=== PATIENT | male | born 1970 | race Caucasian/White ===

== ENCOUNTER 2016-08-29 09:53 | Observation (INO) | payer BC ==
--- NOTE | ~2016-08-29 | HP ---
History And Physical [place] [id number] [facility] [place]. [address] NAME: REMA BAINS : 72 STATUS : ADM Samantha PAT#: [id number] AGE: 46 ADM/REG DATE : 08/29/16 MR#: [id number] REPORT SERV DATE: 08/29/16 DICTATED BY: LAURA CHOI DATE: 08/29/16 REPORT STATUS : Draft TRANSCRIBED BY: STU DATE: 08/29/16 DATE OF ADMISSION: 08/29/2016 CHIEF COMPLAINT: Chest pressure with atypical features. HISTORY OF PRESENT ILLNESS: A very pleasant 46-year-old white gentleman with no known history of CAD, who states that this morning around 0400 hours, he experienced some left- sided chest discomfort, described as a pressure with a tingling into his left arm and now residual numbness in three fingers of his left hand. He states that he was using a sledgehammer this weekend to drive a fencepost into the ground on his property, he experienced no discomfort during that activity, and the chest pain is not reproducible on exam and the chest pain does not radiate elsewhere. He indicates a small area around his left chest that seems to be worse with a deep inspiration. He reports associated shortness of breath, dizziness, and belching. Denies nausea or diaphoresis. At its most intense, he rates the chest discomfort a 7/10. At time of interview in the [facility], he rates it a 2/10. The discomfort has been persistent. He did try four antacids at home prior to arrival with no relief or improvement in his symptoms. He describes the discomfort as a pressure. He denies any personal history of myocardial infarction, stroke, DVT, or pulmonary embolus. The patient denies any recent fever or chills. No palpitations. No syncopal episodes. Denies PND or orthopnea. PAST MEDICAL HISTORY: Denies hypertension, dyslipidemia, or diabetes. PAST SURGICAL HISTORY: None. SOCIAL HISTORY: He is , with two children. 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 He walks three to four times weekly approximately five miles. He also ran one mile on without incident during his routine walk. Denies tobacco or illicits. Consumes some degree of beer, as much as a 12 pack on the weekends. FAMILY HISTORY: No embolic events reported in the first-degree relatives. REVIEW OF SYSTEMS: A 14-point review of systems performed, significant for HPI including consumes one pot of coffee most days. Otherwise, complete review of systems obtained and negative. ALLERGIES: NO KNOWN DRUG ALLERGIES. HOME MEDICATIONS: Ibuprofen p.r.n. PHYSICAL EXAMINATION: VITAL SIGNS: Blood pressure 143/92, pulse 60, respirations 16, temperature 97.7, O2 saturation 98% on room air, height 5 feet 11 inches, weight 207 pounds stated. GENERAL: Cooperative, in no apparent distress. HEENT: Pupils 2 mm. Sclera nonicteric. Nares patent. Moist mucous membranes. No History And Physical [address] [address] NAME: REMA BAINS : 72 STATUS : ADM Samantha PAT#: [id number] AGE: 46 ADM/REG DATE : 08/29/16 MR#: [id number] REPORT SERV DATE: 08/29/16 DICTATED BY: LAURA CHOI DATE: 08/29/16 REPORT STATUS : Draft TRANSCRIBED BY: STU DATE: 08/29/16 xanthelasma. NECK: Trachea midline. No thyromegaly. No JVD. No bruits. LYMPH: No cervical lymphadenopathy. No supraclavicular lymphadenopathy. RESPIRATORY: Unlabored respirations. Breath sounds clear bilaterally to posterior auscultation. No wheezes or rhonchi. CARDIOVASCULAR: Regular rate. No murmur, rub, or gallop appreciated. Extremities without edema. Pulses 2+ bilaterally. ABDOMEN: Soft, nontender, nondistended. Normal bowel sounds auscultated throughout. No organomegaly. SKIN: Warm, dry extremities. No pallor or cyanosis. PSYCHIATRIC: Appropriate affect. Alert, oriented x3. LABORATORY DATA: Troponin less than 0.02 twice, third pending. Potassium 4.2, BUN 15, creatinine 0.85, glucose 115, magnesium 2.2. BNP 4.0. WBC 6.9, hemoglobin 15.0, hematocrit 42.8, platelet count 217,000. D-dimer less than 0.27. EKG, sinus rhythm with early repolarization and nonspecific ST waves. ASSESSMENT AND PLAN: 1. Chest pain with pleuritic component. Observe in CPOU overnight to rule out myocardial infarction per protocol. If three troponins negative, n.p.o. for in the morning. Discharge home if low risk, no ischemia. If anything suggestive of ischemia, Cardiology referral will be initiated. Otherwise, the patient will be asked to follow up with his PCP in one to two weeks with all studies being sent to that office. 2. Abnormal EKG, early repolarization versus subtle pericarditis pattern. Two troponins negative. We will check a second EKG. The patient denies any recent exposure or infection and no EKG for comparison, but the patient reports pleuritic component to his chest discomfort and not reproducible on exam. 3. Caffeine indiscretion. Consumes one pot of coffee daily. Counseled regarding reduction or abstinence and water for hydration. ARCHIE/STU Laura Choi, MSN, ENGINEERING AGENT-BC / [id number] CC: Laura Choi, SMITA, ENGINEERING AGENT-BC Chacha Coffman M.D.
[2016-08-29] MEDS ORDERED: ADVIL PO (11:08)
[2016-08-29 11:44] LABS: BASOPHILS 0.4 %; BASOPHILS ABSOLUTE 0.03 10/3/uL (0.0-0.16); EOSINOPHILS 1.6 %; EOSINOPHILS ABSOLUTE 0.11 10/3/uL (0.0-0.53); ER CBC TAT 0 Hrs 05 Mins; HEMATOCRIT 42.8 % (40.0-51.0); IMMATURE GRANULOCYTES 0.3 %; IMMATURE GRANULOCYTES ABSOLUTE 0.02 10/3/uL (0.0-0.11); LYMPHOCYTES 25.7 %; LYMPHOCYTES ABSOLUTE 1.77 10/3/uL (0.67-4.30); MEAN CORPUSCULAR HEMOGLOB 31.6 pg (26.0-34.0); MEAN CORPUSCULAR VOLUME 90.1 fL (80-100); MEAN PLATELET VOLUME 9.9 fL (9.2-13.0); MONOCYTES 5.4 %; MONOCYTES ABSOLUTE 0.37 10/3/uL (0.21-1.20); NEUTROPHILS 66.6 %; PLATELET COUNT 217 10/3/uL (150-400); RBC DISTRIBUTION WIDTH 13.1 % (12.0-16.0); RED CELL COUNT 4.75 10/6/uL (4.7-6.1); WHITE BLOOD CELLS 6.9 10/3/uL (4.5-10.5)
[2016-08-29 11:45] LABS: MANUAL DIFF NO %
[2016-08-29 11:51] LABS: PARTIAL THROMBO TIME 29.2 SEC (22.5-37.2); PROTIME (NOT ORD) 13.5 SEC (12.0-14.5)
[2016-08-29 11:55] LABS: D-DIMER QUANTITATIVE < 0.27 ug/mLFEU (< 0.50)
[2016-08-29 12:00] LABS: BUN (BLOOD UREA NITROGEN) 15 MG/DL (6-23); CALCIUM, SERUM 9.5 MG/DL (8.5-10.4); CHEST PAIN PROFILE TAT 0 Hrs 21 Mins; CHLORIDE, SERUM 105 MMOL/L (96-112); CO2 (CARBON DIOXIDE) 29 MMOL/L (24-34); CREATININE 0.85 MG/DL (0.70-1.30); GFR AFRICAN AMERICAN 122 ML/MIN (>=60); GFR NON AFRICAN AMERICAN 105 ML/MIN (>=60); GLUCOSE, SERUM 115 MG/DL (60-99); POTASSIUM, SERUM 4.2 MMOL/L (3.5-5.3); SODIUM, SERUM 142 MMOL/L (135-148); TROPONIN I <0.02 NG/ML (<0.05)
== END 2016-08-30 11:12 | disposition home or self-care (01) ==
LOC: ER 09:53 → CDU1 13:32 → CDU2 13:35
PROVIDERS: Emergency Medicine
DX: R07.81 Pleurodynia (principal); R94.39 Abnormal result of other cardiovascular function study; F19.90 Other psychoactive substance use, unspecified, uncomplicated; Z79.1 Long term (current) use of non-steroidal anti-inflammatories (NSAID)
CPT/HCPCS: 71010; 80048; 83735; 83880; 84484; 85025; 85379; 85610; 85730; 93005; 93017; 96374; 96375; 96376; 99285; A9270-GY; G0378; J2405